=== PATIENT | female | born 1995 | race Caucasian/White ===

== ENCOUNTER 2021-10-07 15:11 | Outpatient (RCR) | payer MEDICAID, SELFPAY ==
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
== END 2021-10-07 15:15 | disposition hospice, home (50) ==
LOC: ST 15:11
PROVIDERS: Visit Provider Physical Medicine & Rehabilitation
DX: R41.841 Cognitive communication deficit (principal)
CPT/HCPCS: 92523

== ENCOUNTER 2021-10-08 09:01 | Emergency (ER) | payer MEDICAID, SELFPAY ==
[2021-10-08] VITALS (10 sets, daily range): BP systolic 100–120; BP diastolic 55–79; PULSE 70–111; RESP 16–18; TEMP 36.8–36.9; O2SAT 94–98; BMI 18.8
--- NOTE | 2021-10-08 09:24 | XR_ITS ---
FINAL REPORT TECHNIQUE: Chest PA & Lateral CLINICAL HISTORY: SOA, cough..SHIELDED FINDINGS: 2 views of the chest were performed. The heart size is normal. The mediastinum is within normal limits. There is no acute cardiopulmonary process. There are no pleural effusions. There is no pneumothorax. The bony thorax appears intact. IMPRESSION: No acute cardiopulmonary process. Reviewed, Interpreted and Dictated by Mohsen Gruber MD Transcribed by Al Pascual Authenticated by Mohsen Gruber MD on 10/08/2021 10:28:46 AM [facility]
--- NOTE | 2021-10-08 09:46 | HMH.EDGENADL ---
ED Disposition Clinical Impression: Airway compromise, Subglottic edema Disposition: Xfer Short-Term Hosp Condition on Discharge: Serious Referrals: Provider,Referral, [Primary Care Provider] - - Critical Care Critical Care Time: No Attestation: On 10/08/21, the high probability of a clinically significant, sudden or life threatening deterioration of the following system(s) required my full and direct attention, intervention and personal management. The time I documented below is in addition to time spent performing reported procedures but includes the following listed in this critical care notation. Medical Decision Making - Medical Records Medical records reviewed: Yes: I reviewed the patient's medical records. MR Comment: Reviewed [facility] discharge summary, see below - Surinder Inquiry Pt receiving controlled substance: No Vital Signs: 10/08/21 09:02 10/08/21 09:30 10/08/21 10:00 Temperature 98.5 F Temperature Source Oral Pulse Rate 80 70 Pulse Rate [Right Radial] 95 H Respiratory Rate 18 Blood Pressure 112/69 110/76 Blood Pressure [Right Arm] 111/75 Blood Pressure Mean 83 82 Blood Pressure Mean [Right Arm] 87 Blood Pressure Source [Right Arm] Automatic Cuff Blood Pressure Position [Right Arm] Sitting 02 Sat by Pulse Oximetry 97 95 94 L Oxygen Delivery Method Room Air 10/08/21 10:31 10/08/21 11:30 Temperature Temperature Source Pulse Rate 89 92 H Pulse Rate [Right Radial] Respiratory Rate Blood Pressure 100/55 L 106/61 L Blood Pressure [Right Arm] Blood Pressure Mean 70 70 Blood Pressure Mean [Right Arm] Blood Pressure Source [Right Arm] Blood Pressure Position [Right Arm] 02 Sat by Pulse Oximetry 98 98 Oxygen Delivery Method - Lab Data Lab Results 10/08/21 09:44: WBC 7.0, RBC 3.71 L, Hgb 11.0 L, Hct 34.8 L, MCV 93.8, MCH 29.7, MCHC 31.7 L, RDW 13.6, Plt Count 450 H, MPV 7.1 L, Neut % (Auto) 60.7, Lymph % (Auto) 29.9, Amelia % (Auto) 6.8, Eos % (Auto) 1.1, Baso % (Auto) 1.5, Neut # (Auto) 4.2, Lymph # (Auto) 2.1, Amelia # (Auto) 0.5, Eos # (Auto) 0.1, Baso # (Auto) 0.1 10/08/21 09:44: Sodium 141, Potassium 4.1, Chloride 108 H, Carbon Dioxide 28, Anion Gap 9.1, BUN 7, Creatinine 0.60, Estimated Creat Clear 112, Estimated GFR 121, Est GFR ( Amer) 146, Glucose 97, Calcium 9.2, Total Bilirubin 0.5, AST 31, ALT 26, Alkaline Phosphatase 98, Total Protein 7.7, Albumin 3.9, Globulin 3.8 H, Albumin/Globulin Ratio 1.0 L 10/08/21 09:44: Serum HCG, Qual Negative Result diagrams: 10/08/21 09:44 10/08/21 09:44 Orders (Tests/Meds): ED MEDICATIONS Generic Name Dose Route Start Last Admin Trade Name Freq PRN Reason Stop Dose Admin Sodium Chloride 10 ml 10/08/21 09:24 Sodium Chloride 0.9% 10ml Flush Syringe IV 11/07/21 09:23 NEEDED PRN Maintain IV Site Discontinued Medications Generic Name Dose Route Start Last Admin Trade Name Freq PRN Reason Stop Dose Admin Iopamidol 75 ml 10/08/21 11:05 10/08/21 10:45 Iopamidol-370 (76%);100ml Bottle IV 10/08/21 11:06 75 ml ONCE ONE Administration Iopamidol 70 ml 10/08/21 11:06 10/08/21 11:00 Iopamidol-370 (76%);100ml Bottle IV 10/08/21 11:07 70 ml ONCE ONE Administration Sodium Chloride 20 ml 10/08/21 11:05 10/08/21 11:00 0.9% Sodium Chloride 20ml Vial IV 10/08/21 11:06 20 ml ONCE ONE Administration Sodium Chloride 10 ml 10/08/21 11:05 10/08/21 11:00 Sodium Chloride 0.9% 10ml Syr (Rad Only) IV 10/08/21 11:06 10 ml ONCE ONE Administration Sodium Chloride 20 ml 10/08/21 11:06 10/08/21 11:00 0.9% Sodium Chloride 20ml Vial IV 10/08/21 11:07 20 ml ONCE ONE Administration summary: Admit Date/Time: 09/16/2021 8:16 AM Admitting Attending: Florentin Mejia Discharge Date: 09/26/2021 Discharge Attending Physician: Dawit Pritchard Md PCP name and Address: No primary care provider on file. No primary physici
[2021-10-08 09:57] LABS: Basophils # 0.1 K/mm3 (0-0.2); Basophils % 1.5 % (0.1-2.0); Eosinophils # 0.1 K/mm3 (0.0-0.4); Eosinophils % 1.1 % (0.1-12.0); Hematocrit 34.8 % (37.0-47.0); Lymphocytes # 2.1 K/mm3 (0.7-4.5); Lymphocytes % 29.9 % (10-50); Mean Corpuscular HGB Conc 31.7 g/dL (31.8-35.4); Mean Corpuscular Hemoglobin 29.7 pg (27.0-31.2); Mean Corpuscular Volume 93.8 fl (81-99); Mean Platelet Volume 7.1 fl (7.4-10.4); Monocytes # 0.5 K/mm3 (0.1-1.0); Monocytes % 6.8 % (1.7-9.3); Neutrophils # 4.2 K/mm3 (1.8-7.8); Neutrophils % 60.7 % (37.0-80.0); Platelet Count 450 K/mm3 (142-424); Red Blood Count 3.71 M/mm3 (4.20-5.40); Red Cell Distribution Width 13.6 % (11.5-17.5)
--- NOTE | 2021-10-08 10:05 | CT_ITS ---
FINAL REPORT TECHNIQUE: Thin section axial CT images with coronal reformats were obtained through the neck after the administration of IV contrast. This study was performed with techniques to keep radiation doses as low as reasonably achievable (ALARA). Individualized dose reduction techniques using automated exposure control or adjustment of mA and/or kV according to the patient''s size were employed. CLINICAL HISTORY: trouble breathing, sore throat, hoarse, stridor FINDINGS: There is complete opacification of the maxillary sinuses with peripheral enhancement of the mucosa. There is near complete opacification of the sphenoid sinuses. There is abnormal mucoperiosteal thickening in the ethmoid air cells. There are posterior element fractures involving C4-C7. There is abnormal soft tissue thickening circumferentially at the inferior larynx best seen on axial images 54-61 of series 3. There is significant narrowing of the airway best seen on image 59 of series 3. The abnormal soft tissue is eccentrically greater on the left. There appears to be internal calcifications and fluid locules. Findings may be due to an abscess formation in the subglottic region. IMPRESSION: Significant narrowing of the upper airway as described concerning for subglottic abscess. Clinical correlation is recommended. ENT consultation with direct visualization is recommended. Posttraumatic hematoma is possible but felt less likely. Reviewed, Interpreted and Dictated by Mohsen Gruber MD Transcribed by Al Pascual Authenticated by Mohsen Gruber MD on 10/08/2021 12:26:[address] [facility]
--- NOTE | 2021-10-08 10:05 | CT_ITS ---
FINAL REPORT TECHNIQUE: Thin section axial CT images were obtained from the lung apices to the upper abdomen. IV contrast was administered. MIP 3-D reformats were obtained. This study was performed with techniques to keep radiation doses as low as reasonably achievable (ALARA). Individualized dose reduction techniques using automated exposure control or adjustment of mA and/or kV according to the patient's size were employed. CLINICAL HISTORY: trouble breathing, sore throat, hoarse FINDINGS: The heart size is normal. There is no adenopathy. There is no filling defect to suggest PE. There is no aortic dissection. There is no pericardial effusion. There is a small pleural based density in the periphery of the right hemithorax measuring approximately 6 mm on image 73 of series 5. No pleural effusion. Limited images of the upper abdomen demonstrate no acute abnormality. IMPRESSION: No pulmonary embolism or aortic dissection. Indeterminate subpleural density in the periphery of the right hemithorax is probably postinflammatory. Reviewed, Interpreted and Dictated by Mohsen Gruber MD Transcribed by Al Pascual Authenticated by Mohsen Gruber MD on 10/08/2021 12:26:[address] [facility]
--- NOTE | 2021-10-08 10:07 | PC.NURSE ---
notified rad of ct orders,spoke with Kofi notified lab of new order on pt
[2021-10-08 10:13] LABS: Alanine Aminotransferase 26 U/L (12-78); Albumin Level 3.9 g/dl (3.5-5.0); Alkaline Phosphatase 98 U/L (38-126); Anion Gap 9.1 mEq/L (5-15); Aspartate Amino Transferase 31 U/L (14-36); Bilirubin,Total 0.5 mg/dl (0.2-1.3); Blood Urea Nitrogen 7 mg/dl (7-17); Calcium 9.2 mg/dl (8.4-10.2); Carbon Dioxide 28 mmol/L (22.0-30.0); Chloride 108 mmol/L (98-107); Creatinine Clearance Estimated 112 mL/min (50-200); Estimated Glomerular Filt Rate 121 ml/min (>60); GFR (African American) 146 ML/MIN (>60); Globulin 3.8 g/dL (1.3-3.2); Glucose 97 mg/dl (74-100); Potassium 4.1 mmoL/L (3.5-5.1); Sodium 141 mmol/L (136-145); Total Protein,Serum 7.7 g/dl (6.3-8.2)
[2021-10-08 10:27] LABS: HCG Qualitative, Serum Negative (Negative)
--- NOTE | 2021-10-08 10:47 | PC.NURSE ---
pt in ct
--- NOTE | 2021-10-08 11:54 | PC.NURSE ---
JADE DELGADO speaking with dr. christie (ent) in specialty clinic
--- NOTE | 2021-10-08 12:01 | PC.NURSE ---
dr. christie at [facility]
--- NOTE | 2021-10-08 12:15 | PC.NURSE ---
calling [facility] for transfer to [facility]
--- NOTE | 2021-10-08 12:23 | PC.NURSE ---
contacted rad to check on status of official reports for pt ct also verified that they have sent pt images to [facility] via [facility] confirmed they have
--- NOTE | 2021-10-08 12:28 | PC.NURSE ---
speaking to dr brennan at [facility]
--- NOTE | 2021-10-08 13:01 | PC.NURSE ---
called [facility] for transport
--- NOTE | 2021-10-08 13:09 | PC.NURSE ---
report called to [facility]
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
== END 2021-10-08 13:37 | disposition short-term general hospital (02) ==
PROVIDERS: Emergency Provider Emergency Medicine
DX: J38.4 Edema of larynx (principal); J98.8 Other specified respiratory disorders; S12.4 Fracture of fifth cervical vertebra; S12.5 Fracture of sixth cervical vertebra; S12.600 Unspecified displaced fracture of seventh cervical vertebra; S02.113 Unspecified occipital condyle fracture; V49.3XXD Car occupant (driver) (passenger) injured in unspecified nontraffic accident, subsequent encounter
CPT/HCPCS: 70491; 71046; 71275; 80053; 84703; 85025; 99284; Q9967